=== PATIENT | female | born 1950 | race Caucasian/White ===

== ENCOUNTER 2024-08-21 20:40 | Emergency (ER) | payer MEDICARE ==
[~2024-08-21] VITALS: Ht 157.5 cm; Wt 61.2 kg
[2024-08-21 22:23] LABS: BASOPHILS # (AUTO) 0.1 (0.0-0.1); BASOPHILS % 0.6 % (0.0-1.0); EOSINOPHILS # (AUTO) 0.4 (0.0-0.4); EOSINOPHILS % 5.1 % (0.0-6.0); HEMATOCRIT 35.8 % (34.2-44.1); HEMOGLOBIN 12.2 g/dL (12.0-16.0); LYMPHOCYTES # (AUTO) 2.1 (1.0-3.2); LYMPHOCYTES % 27.5 % (18.0-39.1); MEAN CORPUSCULAR HEMOGLOBIN 30.7 pg (28-32); MEAN CORPUSCULAR HGB CONC 34.1 g/dL (31-35); MEAN CORPUSCULAR VOLUME 90.2 fL (81-99); MONOCYTES # (AUTO) 0.7 (0.2-0.8); MONOCYTES % 8.8 % (4.4-11.3); NEUTROPHILS # (AUTO) 4.4 (2.1-6.9); NEUTROPHILS % 57.6 % (38.7-80.0); PLATELET COUNT 243 x10e3/uL (140-360); RED BLOOD COUNT 3.97 x10e6/uL (3.6-5.1); RED CELL DISTRIBUTION WIDTH 13.2 % (11.7-14.4)
[2024-08-21 22:29] VITALS: PULSE 73; RESP 18; TEMP 97.9; O2SAT 98
[2024-08-21 22:32] LABS: ANION GAP 14.3 mmol/L (8-16); BILIRUBIN,TOTAL 0.5 mg/dL (0.2-1.2); CALCIUM 9.2 mg/dL (8.4-10.2); CREATININE, SERUM 1.11 mg/dL (0.57-1.11); POTASSIUM 4.3 mmol/L (3.5-5.1); TOTAL PROTEIN 8.1 g/dL (6.5-8.1)
[2024-08-21 22:59] LABS: INR 1.02
[2024-08-21 23:00] LABS: PARTIAL THROMBOPLASTIN TIME 29.3 seconds (23.8-35.5)
== END 2024-08-21 23:24 | disposition other institution (70) ==
LOC: ER 21:51
DX: R51.9 Headache, unspecified (principal); V47.5XXA Car driver injured in collision with fixed or stationary object in traffic accident, initial encounter; Y92.488 Other paved roadways as the place of occurrence of the external cause; C71.3 Malignant neoplasm of parietal lobe; G93.89 Other specified disorders of brain; I10 Essential (primary) hypertension; G40.909 Epilepsy, unspecified, not intractable, without status epilepticus
CPT/HCPCS: 36415; 70450; 72125; 80053; 85025; 85610; 85730; 99284